=== PATIENT | female | born 1990 | race Caucasian/White ===

== ENCOUNTER 2016-04-22 14:57 | Inpatient (IN) | payer OTHER ==
[2016-04-22] MEDS ORDERED: Sodium Chloride 0.9% 10 ML Syringe FLUSH PRN (16:57)
[2016-04-22] MEDS: Lactated Ringers 1,000 ML IV SCH ×2 (17:17→22:11)
[2016-04-22] MEDS ORDERED: fentaNYL 300 MCG in Ropivacaine 200 ML EPIDUR ONE (21:30)
[2016-04-22] MEDS ORDERED: fentaNYL 100 MCG/2 ML SDV EPIDUR ONE (21:30)
[2016-04-22] MEDS ORDERED: ePHEDrine 50 MG/ML SDV IVPUSH PRN (23:19)
[2016-04-22] MEDS ORDERED: Promethazine 25 MG/ML SDV IV PRN (23:19)
[2016-04-22] MEDS ORDERED: Naloxone 0.4 MG in Sodium Chloride 0.9% 100 ML IV PRN (23:19)
[2016-04-22] MEDS ORDERED: diphenhydrAMINE 50 MG/ML SDV IVPUSH PRN (23:19)
[2016-04-22] MEDS ORDERED: Naloxone 0.4 MG/ML SDV IVPUSH PRN (23:19)
[2016-04-22] MEDS ORDERED: hydrOXYzine HCl 50 MG/ML SDV IM PRN (23:22)
[2016-04-22] MEDS ORDERED: Ondansetron 4 MG/2 ML SDV IVPUSH PRN (23:26)
[2016-04-23] MEDS ORDERED: Sodium Chloride 0.9% 10 ML Syringe FLUSH PRN (03:07)
[2016-04-23] MEDS: Acetaminophen 325 MG Tab PO PRN ×2 (03:35→09:02)
[2016-04-23] MEDS: Lactated Ringers 1,000 ML IV SCH (04:53)
--- NOTE | 2016-04-24 10:00 | DEL ---
DATE OF DELIVERY: 04/23/2016 ADMISSION AND DELIVERY NOTE: REASON FOR ADMISSION: This 26-year-old, female, one, para zero, EDC of 04/20/2016, was admitted in active labor. Her contractions had started earlier today and gradually increased in intensity and frequency. had been uncomplicated. No evidence of proteinuria, glucosuria, hypertension. Screening glucose was normal and her screening blood sugar was unremarkable. Ultrasounds revealed a male fetus and agreed with dates. She had taken no medicines other than vitamins. She had use some Gyne-Lotrimin cream for yeast infection. Otherwise, she is on no medicines now. ALLERGIES: None that are known. SOCIAL HISTORY: She does not smoke, nor use alcohol. PAST MEDICAL HISTORY: Completely unremarkable. FAMILY HISTORY: Negative. PHYSICAL EXAMINATION: VITAL SIGNS: Exam at this time showed her to be afebrile. Blood pressure was 139/75, pulse is 115 during contraction, respirations are 18, O2 saturation is 97%. GENERAL: A well-developed, well- nourished female, who at this time is in otherwise no acute distress. HEENT: Unremarkable. Carotid pulses are strong and equal. CHEST: Clear. CARDIOVASCULAR: Unremarkable with a regular rhythm. ABDOMEN: Unremarkable except for a gravid uterus. heart tones were in the 130s in the left lower quadrant. Pelvic exam showed cervix to be 3 cm dilated, -1 station, vertex presentation, and approximately 50% effaced. EXTREMITIES: Without clubbing, no edema. No other abnormalities were identified. The patient was initially monitored and after it became obvious that her contractions were frequent and of good quality. She was admitted shortly thereafter. Spontaneous ruptured membranes occurred with clear to slightly brown fluid. IV was inserted and we continued to monitor her labor. When she reached approximately 5 to 7 cm, she decided she would like an epidural. This was placed and she was very comfortable thereafter. She then slowly progressed to 10 cm dilatation and began pushing. Over the next hour and a half, she pushed to bring the baby's head down on the perineum. The perineum was then prepped and draped and she continued to push. The midline of the perineal body was anesthetized with 1% Xylocaine and we allowed her to continue to push. Position of the baby was DHRUV. The patient continued to push and it became obvious that we were about to develop a midline perineal tear. A small midline episiotomy was accomplished without difficulty and with the next 2 pushes, she went on to deliver the 's head. A loose nuchal cord was reduced and the nasopharynx was suctioned free of amniotic fluid and blood. It appeared to be clear or clear mucus. The baby then rotated to right occiput transverse and the left anterior followed by the right posterior shoulder were then delivered, as was the remainder of the . Again, the nasopharynx was suctioned free of amniotic fluid and blood. The cord was doubly clamped and dad was allowed to cut the cord between clamps without difficulty. The baby was then placed on the mom's abdomen. scores were 9 and 9. weight was 7 pounds 3 ounces. It was a male infant. Attention was returned to the mother. Cord blood was obtained and the placenta delivered after approximately 5 to 7 minutes of uterine massage. It appeared to be intact with vessels present x3. 10 units of Pitocin were placed in the IV bag and it was run at 999 mL/h with uterine massage and the above-mentioned Pitocin, excellent hemostasis was observed. The perineum was inspected and the episiotomy had extended to a second-degree. It was a very superficial periurethral abrasion, but no other vaginal tears or other abnormalities were identified. Cervix appeared to be intact. After aggressive uterine massage and excellent hemostasis, the episiotomy was then reanesthetized with 1% Xylocaine and repaired in the usual fashion with a running 2-0 chromic. She tolerated this well. All instruments were removed. The vagina was inspected for foreign bodies and clots were removed. The uterus remained firm. Rectum remained patent and she tolerated the whole procedure very well. Estimated blood loss was approximately 250 mL. All instruments and sponges were accounted for. The patient remained in the delivery room in good and stable condition, awake, alert, and visiting with us without difficulty. /[id number] /JAMESL
--- NOTE | 2016-04-24 10:32 | PN ---
DATE SEEN: 04/24/2016 SUBJECTIVE: This 26-year-old female is one day following a spontaneous vaginal delivery of a 7 pounds 3 ounce male. She is doing well. She says her bleeding is decreasing considerably. She is passing no clots. Denies any significant abdominal pain. She has been voiding without difficulty. She says her uterine discomfort is improving. Perineal discomfort is improving. She has been using tub soaks with good results. She is eating and drinking well. She slept well last night. She use only Tylenol for discomfort. OBJECTIVE: GENERAL: She appears to be quite comfortable. At this time in no acute distress. VITAL SIGNS: Afebrile. Blood pressure 102/67, pulse is 74 and regular, respirations were 20 and unlabored, O2 saturation on room air ranges between 93% and 98%. HEENT: Unremarkable. Mucous membranes are minimally pale. Thyroid is not enlarged. Carotid pulses strong and equal. CHEST: Clear. CARDIOVASCULAR: Revealed a normal S1 and S2 without murmur, rub, or gallop. ABDOMEN: Soft. Involuting firm uterus is noted that is nontender. EXTREMITIES: Without clubbing. No edema. No calf pain, swelling, or tenderness. LABORATORY DATA: Post delivery hemoglobin is 11.8, white count is 10,000, platelets are 122,000. IMPRESSION: day #1 following spontaneous vaginal delivery of a 7 pounds 3 ounce male. PLAN: No changes will be made. We will continue the same. Encourage pushing oral fluids, and continue the Tylenol for discomfort. We will follow from there. /[id number] /[place]
[2016-04-24 16:16] VITALS: BP 111/79
--- NOTE | 2016-05-03 10:46 | PN ---
DATE SEEN: 04/24/2016 SUBJECTIVE: Trisha is seen today for followup this afternoon. She is day #1, almost #2, from her normal spontaneous vaginal delivery. We had surfed on the day on the baby and it has gone well. The baby is voiding well and mom would like to go home. She says has been improving and she has little or no vaginal bleeding. No fever. No other complaints or concerns. OBJECTIVE: GENERAL: Unremarkable. VITAL SIGNS: She remains afebrile. Blood pressure 111/79, pulse is 66 and regular. BACK: Without CVA or spinal tenderness. CHEST: Clear. CARDIOVASCULAR: Unremarkable. ABDOMINAL: Unremarkable. EXTREMITIES: Unremarkable. IMPRESSION: Status post normal spontaneous vaginal delivery, currently doing well. PLAN: Plan on discharge home. She will follow up with her regular physician 2 weeks of age and regular visit at 6 weeks . We discussed contraception at this time. Barrier method will be used if in fact she does consent to have intercourse. Tub soaks will be continued to promote appropriate healing of the perineal area and Tylenol or ibuprofen will be used for discomfort as she says at this time she does not need anything more. She will continue her vitamins once daily and if there are any problems or concerns, call; otherwise, normal followup in six weeks. /[id number] /CL[place]
== END 2016-04-24 19:00 | disposition home or self-care (01) | DRG 775 ==
LOC: FB.OBCHECK 14:57 → FB.OB 14:57 → FB.OBCHECK 16:39 → UNDOADMIN 16:40 → FB.OB 16:40
PROVIDERS: ADMIT Family Medicine; ATTEND Family Medicine
PROC: 10E0XZZ Delivery of Products of Conception, External Approach (ICD-10-PCS; principal; 2016-04-23)
PROC: 0W8NXZZ Division of Female Perineum, External Approach (ICD-10-PCS; 2016-04-23)
PROC: 00HU33Z Insertion of Infusion Device into Spinal Canal, Percutaneous Approach (ICD-10-PCS; 2016-04-23)
DX: O69.81X0 Labor and delivery complicated by cord around neck, without compression, not applicable or unspecified (principal); Z3A.39 39 weeks gestation of pregnancy; Z37.0 Single live birth
CPT/HCPCS: 36415; 85027; 99211; A4217; A9270-GY; J2795; J3010; J7050; J7120

== ENCOUNTER 2017-05-24 07:00 | Inpatient (IN) | payer OTHER ==
[2017-05-24] MEDS ORDERED: Misoprostol 25 MCG (1/4 of 100 MCG) Tab VAG ONE (07:20)
--- NOTE | 2017-05-24 08:17 | PCM.LDHP ---
L&D History of Present Illness - General Date of Service: 05/24/17 Admit Problem/Dx: Patient Status Order with Admit Dx/Problem 05/24/17 07:04 Admission Status [Patient Status] [ADT] Routine Admission Diagnosis/Problem Admission Diagnosis/Problem Source of Information: Patient History Limitations: Reports: No Limitations - History of Present Illness Introduction:: 27 yo at 41 weeks 3days here for induction of labor due to Post datism. No complaints. Unremarkable . 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: Musculoskeletal History: Reports: Other (See Below) Other Musculoskeletal History: bunion repair to toe Dermatologic History: Reports: Other (See Below) Other Dermatologic History: use of clotramizole for vaginal yeast - Past Surgical History Head Surgeries/Procedures: Reports: None Musculoskeletal Surgical History: Reports: Other (See Below) Social & Family History - Family History OBGYN: Reports: Endocrine/Metabolic: Reports: Diabetes, Type I, Hypothyroidism - Tobacco Use Smoking Status *Q: Never Smoker Second Hand Smoke Exposure: No - Caffeine Use Caffeine Use: Reports: None - Recreational Drug Use Recreational Drug Use: No H&P Review of Systems - Review of Systems: Review Of Systems: ROS reveals no pertinent complaints other than HPI. L&D Exam - Exam Exam: See Below - Vital Signs Vital Signs: Last Vital Signs Temp Pulse 88 05/24/17 07:50 Resp BP 88/60 L 05/24/17 07:19 Pulse Ox 86 L 05/24/17 07:18 Weight: 68.946 kg - Murry Score Murry Score Effacement: 51-70% Murry Score Dilation: 1-2 cm Murry Score 's Station: -1 ,0 - Exam General: Alert, Oriented HEENT: PERRLA, Conjunctiva Clear, EACs Clear, EOMI, Hearing Intact, Mucosa Moist & Noonday, Nares Patent, Normal Nasal Septum, Posterior Pharynx Clear, TMs Clear Neck: Supple, Trachea Midline Lungs: Clear to Auscultation, Normal Respiratory Effort Cardiovascular: Regular Rate, Regular Rhythm GI/Abdominal Exam: Normal Bowel Sounds, Soft, Non-Tender, No Organomegaly, No Distention, No Abnormal Bruit, No Mass, Pelvis Stable Rectal Exam: Normal Exam, Normal Rectal Tone Genitourinary: Normal external exam, Normal bimanual exam, Normal speculum exam Back Exam: Normal Inspection, Full Range of Motion Extremities: Normal Inspection, Normal Range of Motion, Non-Tender, No Pedal Edema, Normal Capillary Refill Skin: Warm, Dry, Intact Neurological: Cranial Nerves Intact, Reflexes Equal Bilateral Psychiatric: Alert, Normal Affect, Normal Mood - Problem List (1) Encounter for elective induction of labor SNOMED Code(s): 695071364 ICD Code: Z34.90 - ENCNTR FOR SUPRVSN OF NORMAL , UNSP, UNSP TRIMESTER Status: Acute Current Visit: Yes (2) SNOMED Code(s): 90406188 ICD Code: Z33.1 - STATE, INCIDENTAL Status: Acute Current Visit : No Qualifiers: Weeks of gestation: 41 weeks Qualified Code(s): Z3A.41 - 41 weeks gestation of Problem List Initiated/Reviewed/Updated: Yes Orders Last 24hrs: Active Orders 24 hr Category Date Time Status Admission Status [Patient Status] [ADT] Routine ADT 05/24/17 07:04 Active Assessment/Plan Comment:: Cytotec Induction initiated.
--- NOTE | 2017-05-24 17:10 | PCM.PNLD ---
Labor Progress Note - VS & Meds Vital Signs: Last Vital Signs Temp Pulse 82 05/24/17 16:23 Resp BP 116/60 05/24/17 15:15 Pulse Ox 98 05/24/17 10:51 Active Medications: Current Medications Discontinued Medications Misoprostol (Cytotec) 25 mcg VAG ONETIME ONE Stop: 05/24/17 07:21 Last Admin: 05/24/17 07:49 Dose: 25 mcg - Uterine Contractions Uterine Monitoring Mode: External [place] Contraction Frequency (min): 2-4 Contraction Duration (sec): 40 Contraction Intensity: Mild to Moderate Uterine Resting Tone: Soft - Monitoring Heart Rate (FHR) Variability: Moderate (6-25 bmp) Accelerations: Present, 15x15 Decelerations: None Strip Review: Category I - Vaginal Exam Dilation (cm): 4 Effacement (Percent): 90 Station: -1 Cervical Position: Midposition Sterile Vaginal Exam Performed By: Ortiz Schrader Vaginal Exam Comment: baby has come down - Labor Progress (Free Text) Labor Progress: Doing well,comfortable.Contractions every 2-3 min . I performed AROM,clear fluid. Baby reassuring afterwards
[2017-05-24] MEDS ORDERED: Lactated Ringers 1,000 ML IV ONE (17:30)
[2017-05-24] MEDS ORDERED: ePHEDrine 50 MG/ML SDV IV ONE ×2 (17:45→19:15)
[2017-05-24] MEDS ORDERED: Ropivacaine 200 ML EPIDUR ONE (17:45)
[2017-05-24] MEDS ORDERED: fentaNYL 100 MCG/2 ML SDV EPIDUR ONE ×2 (17:45→19:15)
[2017-05-24] MEDS ORDERED: Sodium Chloride 0.9% 10 ML Syringe FLUSH PRN (18:19)
[2017-05-24] MEDS ORDERED: Lactated Ringers 1,000 ML IV SCH (18:45)
[2017-05-24] MEDS ORDERED: diphenhydrAMINE 50 MG/ML SDV IVPUSH PRN (20:38)
[2017-05-24] MEDS ORDERED: Promethazine 25 MG/ML SDV IV PRN (20:38)
[2017-05-24] MEDS ORDERED: Naloxone 0.4 MG/ML SDV IVPUSH PRN (20:38)
[2017-05-24] MEDS ORDERED: Naloxone 0.4 MG in Sodium Chloride 0.9% 100 ML IV PRN (20:38)
[2017-05-24] MEDS ORDERED: hydrOXYzine HCl 50 MG/ML SDV IM PRN ×2 (20:38)
[2017-05-24] MEDS ORDERED: ePHEDrine 50 MG/ML SDV IVPUSH PRN (20:38)
[2017-05-24] MEDS ORDERED: Ropivacaine HCl/PF 200 MG in Premix Bag 1 BAG EPIDUR SCH (21:00)
[2017-05-24] MEDS: Ibuprofen 600 MG Tab PO PRN (23:41)
[2017-05-25] MEDS: Ibuprofen 600 MG Tab PO PRN ×2 (04:15→09:47)
--- NOTE | 2017-05-25 06:16 | DEL ---
DATE OF DELIVERY: 05/24/2017 PREOPERATIVE DIAGNOSIS: 41 weeks and 3 days intrauterine here for induction of labor. POSTOPERATIVE DIAGNOSIS: 41 weeks and 3 days intrauterine here for induction of labor with delivery of a viable male at 2149 hours, weighing 9 pounds 3 ounces. scores of 9 and 9. PROCEDURE: 1. Spontaneous vaginal delivery. 2. First-degree periurethral repair. ANESTHESIA: Epidural. ESTIMATED BLOOD LOSS: 300 mL. INDICATIONS: This is a 27-year-old female, G2, P1, who presented at 41 weeks and 3 days for induction of labor, which was performed by Cytotec and artificial rupture of membranes. At 2100 hours, the patient was found to be complete and pushing. She was placed in the dorsal lithotomy position, prepped and draped in the usual sterile fashion for a vaginal delivery. The patient was asked to push and the head delivered spontaneously in the OA position. The rest of the baby was delivered. No nuchal cord was found and the baby was laid in the maternal abdomen. Cord was cut and clamped. The mouth and nose gently wiped. The was noted to have spontaneous cry and movement of all 4 extremities. The cord was cut and clamped x2 and 2 arteries and 1 vein were noted and the infant was passed to the warmer and the nursing personnel in attendance. Cord blood was obtained. The placenta was delivered within 5 minutes intact by gentle traction. The uterus was explored and 10 units of Pitocin was given IM. Examination of the cervix and vaginal vault revealed only 4 cm sized superficial laceration in the right periurethral area. This was repaired by 4-0 Prolene to achieve hemostasis. The patient tolerated the procedures well. She recovered and she is in L and D with infant. All the sponge and needle counts were correct. Myself, Dr. Schrader, was present during the whole procedure. /[id number] SASHA/CL[place]
--- NOTE | 2017-05-25 10:46 | PCM.PNPP ---
- General Info Date of Service: 05/25/17 Subjective Update: Doing well.Occasional cramps. - Review of Systems General: Reports: No Symptoms HEENT: Reports: No Symptoms Pulmonary: Reports: No Symptoms Cardiovascular: Reports: No Symptoms Gastrointestinal: Reports: No Symptoms Genitourinary: Reports: No Symptoms Musculoskeletal: Reports: No Symptoms Skin: Reports: No Symptoms Neurological: Reports: No Symptoms Psychiatric: Reports: No Symptoms - General Info Date of Service: 05/25/17 - Patient Data Vital Signs - Most Recent: Last Vital Signs Temp 98.4 F 05/25/17 04:00 Pulse 75 05/25/17 04:00 Resp 16 05/25/17 04:00 BP 98/60 05/25/17 04:00 Pulse Ox 100 05/24/17 22:32 Weight - Most Recent: 68.946 kg I&O - Last 24 Hours: Intake & Output 05/24/17 05/25/17 05/25/17 22:59 06:59 14:59 Intake Total 984 Output Total 500 Balance 484 Lab Results - Last 24 Hours: Laboratory Results - last 24 hr 05/25/17 Range/Units 06:20 WBC 12.4 H (4.5-12.0) X10-3/uL RBC 3.60 (3.23-5.20) x10(6)uL Hgb 10.6 L (11.5-15.5) g/dL Hct 32.4 (30.0-51.3) % MCV 90.1 (80-96) fL MCH 29.6 (27.7-33.6) pg MCHC 32.8 (32.2-35.4) g/dL RDW 13.4 (11.5-15.5) % Plt Count 104 L (125-369) X10(3)uL Med Orders - Current: Current Medications Ibuprofen (Motrin) 600 mg PO Q4H PRN PRN Reason: Pain Last Admin: 05/25/17 09:47 Dose: 600 mg Sodium Chloride (Saline Flush) 10 ml FLUSH ASDIRECTED PRN PRN Reason: Keep Vein Open Last Admin: 05/25/17 00:50 Dose: 10 ml Discontinued Medications Diphenhydramine HCl (Benadryl) 25 mg IVPUSH ASDIRECTED PRN PRN Reason: PRURITUS Ephedrine Sulfate (Ephedrine Sulfate) 5 mg IVPUSH ASDIRECTED PRN PRN Reason: HYPOTENSION Hydroxyzine HCl (Vistaril) 50 mg IM Q6H PRN PRN Reason: PRURITIS Hydroxyzine HCl (Vistaril) 0 mg IM Q4H PRN PRN Reason: N/V Lactated Ringer's (Ringers, Lactated) 1,000 mls @ 999 mls/hr IV BOLUS ONE Stop: 05/24/17 18:30 Last Admin: 05/24/17 17:30 Dose: 999 mls/hr Lactated Ringer's (Ringers, Lactated) 1,000 mls @ 125 mls/hr IV ASDIRECTED TOMAS Last Admin: 05/24/17 18:58 Dose: 125 mls/hr Naloxone HCl 0.4 mg/ Sodium (Chloride) 101 mls @ 25 mls/hr IV ASDIRECTED PRN PRN Reason: PER ORDER OF ANESTHESIA Ropivacaine 200 mg/ Premix 100 mls @ 8 mls/hr EPIDUR ASDIRECTED [facility] Misoprostol (Cytotec) 25 mcg VAG ONETIME ONE Stop: 05/24/17 07:21 Last Admin: 05/24/17 07:49 Dose: 25 mcg Naloxone HCl (Narcan) 0.1 mg IVPUSH ASDIRECTED PRN PRN Reason: RESPIRATORY STATUS Promethazine HCl (Phenergan) 6.25 - 12.5 mg IV Q4H PRN PRN Reason: NAUSEA AND VOMITING - Interaction Disposition, : [place] in Room with Family Infant Interaction: Holding Infant Infant Feeding: Attempted ; Nursed Fair/Poor Support Person: - Recovery Exam Fundal Tone: Firm Fundal Level: At Umbilicus Fundal Placement: Midline Lochia Amount: Moderate Lochia Color: Rubra/Red Perineum Description: Intact, Minimal Bruising/Swelling Other Perinuem Description: periurethral laceration-suturing done Episiotomy/Laceration: Approximated Bladder Status: Voiding - Exam General: Alert, Oriented HEENT: Pupils Equal Neck: Supple Lungs: Clear to Auscultation, Normal Respiratory Effort Cardiovascular: Regular Rate, Regular Rhythm GI/Abdominal Exam: Normal Bowel Sounds, Soft, Non-Tender, No Organomegaly, No Distention, No Abnormal Bruit, No Mass, Pelvis Stable Extremities: Normal Inspection, Normal Range of Motion, Non-Tender, No Pedal Edema, Normal Capillary Refill Skin: Warm, Dry, Intact Wound/Incisions: Healing Well Neurological: No New Focal Deficit Psy/Mental Status: Alert, Normal Affect, Normal Mood - Problem List & Annotations (1) Encounter for elective induction of labor SNOMED Code(s): 424179205 Code(s): Z34.90 - ENCNTR FOR SUPRVSN OF NORMAL , UNSP, UNSP TRIMESTER Status: Acute Current Visit: Yes (2) SNOMED Code(s): 78967628 Code(s): Z33.1 - STATE, INCIDENTAL Status: Acute Current Visit: No Qualifiers: Weeks of gestation: 41 weeks Qualified Code(s): Z3A.41 - 41 weeks gestation of (3) Normal labor and delivery SNOMED Code(s): 56258824, 122963177 Code(s): O80 - ENCOUNTER FOR FULL-TERM UNCOMPLICATED DELIVERY Status: Acute Current Visit: No (4) care and examination SNOMED Code(s): 135301065, 421177681, 118493165 Code(s): Z39.2 - ENCOUNTER FOR ROUTINE FOLLOW-UP Status: Acute Current Visit: Yes - Problem List Review Problem List Initiated/Reviewed/Updated: Yes - My Orders Last 24 Hours: My Active Orders 05/24/17 17:00 Admission Status [Patient Status] [ADT] Routine 05/24/17 18:19 Sodium Chloride 0.9% [Saline Flush] 10 ml FLUSH ASDIRECTED PRN Peripheral IV Insertion Adult [OM.PC] Routine 05/24/17 20:25 Insert Urinary Catheter [OM.PC] Timed 05/24/17 22:11 Up ad Radha [RC] ASDIRECTED Vital Signs [RC] PFP Ibuprofen [Motrin] 600 mg PO Q4H PRN Resuscitation Status Routine 05/24/17 22:12 Ice Therapy [OM.PC] Per Unit Routine Perineal Care [OM.PC] Per Unit Routine Sitz Bath [OM.PC] Per Unit Routine - Plan Plan:: Routine care
[2017-05-26] MEDS: Ibuprofen 600 MG Tab PO PRN (01:13)
[2017-05-26 01:50] VITALS: BP 108/85
--- NOTE | 2017-05-26 08:43 | PCM.PNPP ---
- General Info Date of Service: 05/26/17 Functional Status: Reports: Pain Controlled, Tolerating Diet - Review of Systems General: Reports: No Symptoms HEENT: Reports: No Symptoms Pulmonary: Reports: No Symptoms Cardiovascular: Reports: No Symptoms Gastrointestinal: Reports: No Symptoms Genitourinary: Reports: No Symptoms - General Info Date of Service: 05/26/17 - Patient Data Vital Signs - Most Recent: Last Vital Signs Temp 97.8 F 05/26/17 01:10 Pulse 114 H 05/26/17 01:10 Resp 18 05/26/17 01:10 BP 108/85 05/26/17 01:10 Pulse Ox 95 05/26/17 01:10 Weight - Most Recent: 68.946 kg Med Orders - Current: Current Medications Ibuprofen (Motrin) 600 mg PO Q4H PRN PRN Reason: Pain Last Admin: 05/26/17 01:13 Dose: 600 mg Sodium Chloride (Saline Flush) 10 ml FLUSH ASDIRECTED PRN PRN Reason: Keep Vein Open Last Admin: 05/25/17 00:50 Dose: 10 ml Discontinued Medications Diphenhydramine HCl (Benadryl) 25 mg IVPUSH ASDIRECTED PRN PRN Reason: PRURITUS Ephedrine Sulfate (Ephedrine Sulfate) 5 mg IVPUSH ASDIRECTED PRN PRN Reason: HYPOTENSION Ephedrine Sulfate (Ephedrine Sulfate) 10 mg IV .STK-MED ONE Stop: 05/24/17 17:46 Ephedrine Sulfate (Ephedrine Sulfate) 10 mg IV .STK-MED ONE Stop: 05/24/17 19:16 Fentanyl (Sublimaze) 100 mcg EPIDUR .STK-MED ONE Stop: 05/24/17 17:46 Fentanyl (Sublimaze) 100 mcg EPIDUR .STK-MED ONE Stop: 05/24/17 19:16 Hydroxyzine HCl (Vistaril) 50 mg IM Q6H PRN PRN Reason: PRURITIS Hydroxyzine HCl (Vistaril) 0 mg IM Q4H PRN PRN Reason: N/V Lactated Ringer's (Ringers, Lactated) 1,000 mls @ 999 mls/hr IV BOLUS ONE Stop: 05/24/17 18:30 Last Admin: 05/24/17 17:30 Dose: 999 mls/hr Lactated Ringer's (Ringers, Lactated) 1,000 mls @ 125 mls/hr IV ASDIRECTED TOMAS Last Admin: 05/24/17 18:58 Dose: 125 mls/hr Naloxone HCl 0.4 mg/ Sodium (Chloride) 101 mls @ 25 mls/hr IV ASDIRECTED PRN PRN Reason: PER ORDER OF ANESTHESIA Ropivacaine 200 mg/ Premix 100 mls @ 8 mls/hr EPIDUR ASDIRECTED TOMAS Ropivacaine (Naropin 0.2%) 200 mls @ as directed EPIDUR .STK-MED ONE Stop: 05/24/17 17:46 Misoprostol (Cytotec) 25 mcg VAG ONETIME ONE Stop: 05/24/17 07:21 Last Admin: 05/24/17 07:49 Dose: 25 mcg Naloxone HCl (Narcan) 0.1 mg IVPUSH ASDIRECTED PRN PRN Reason: RESPIRATORY STATUS Promethazine HCl (Phenergan) 6.25 - 12.5 mg IV Q4H PRN PRN Reason: NAUSEA AND VOMITING - Interaction Infant Disposition, : in Room with Family Interaction: Holding Infant Infant Feeding: Attempted ; Nursed Fair/Poor Support Person: - Recovery Exam Fundal Tone: Firm Fundal Level: At Umbilicus Fundal Placement: Midline Lochia Amount: Small, Moderate Lochia Color: Rubra/Red Perineum Description: Intact, Minimal Bruising/Swelling Other Perinuem Description: periurethral laceration-suturing done Episiotomy/Laceration: Approximated Bladder Status: Nonpalpable Urinary Elimination: Voided - Exam General: Alert, Oriented HEENT: Pupils Equal Neck: Supple Lungs: Clear to Auscultation, Normal Respiratory Effort Cardiovascular: Regular Rate, Regular Rhythm GI/Abdominal Exam: Normal Bowel Sounds, Soft, Non-Tender, No Organomegaly, No Distention, No Abnormal Bruit, No Mass, Pelvis Stable Extremities: Normal Inspection, Normal Range of Motion, Non-Tender, No Pedal Edema, Normal Capillary Refill Skin: Warm, Dry, Intact Wound/Incisions: Healing Well Neurological: No New Focal Deficit Psy/Mental Status: Alert, Normal Affect, Normal Mood - Problem List & Annotations (1) Encounter for elective induction of labor SNOMED Code(s): 619809906 Code(s): Z34.90 - ENCNTR FOR SUPRVSN OF NORMAL , UNSP, UNSP TRIMESTER Status: Acute Current Visit: Yes (2) SNOMED Code(s): 70087595 Code(s): Z33.1 - STATE, INCIDENTAL Status: Acute Current Visit: No Qualifiers: Weeks of gestation: 41 weeks Qualified Code(s): Z3A.41 - 41 weeks gestation of (3) Normal labor and delivery SNOMED Code(s): 35332593, 903566132 Code(s): O80 - ENCOUNTER FOR FULL-TERM UNCOMPLICATED DELIVERY Status: Acute Current Visit: No (4) care and examination SNOMED Code(s): 895940275, 388479544, 811079793 Code(s): Z39.2 - ENCOUNTER FOR ROUTINE FOLLOW-UP Status: Acute Current Visit: Yes - Problem List Review Problem List Initiated/Reviewed/Updated: Yes - Plan Plan:: DC home
--- NOTE | 2017-05-26 08:49 | PCM.DCSUM1 ---
Discharge Summary - Hospital Course Free Text/Narrative:: Induced ,delivered vaginally - Discharge Data Discharge Date: 05/26/17 Discharge Disposition: Home, Self-Care 01 Condition: Good - Discharge Diagnosis/Problem(s) (1) Encounter for elective induction of labor SNOMED Code(s): 453096765 ICD Code: Z34.90 - ENCNTR FOR SUPRVSN OF NORMAL , UNSP, UNSP TRIMESTER Status: Acute Current Visit: Yes (2) SNOMED Code(s): 13294236 ICD Code: Z33.1 - STATE, INCIDENTAL Status: Acute Current Visit : No Qualifiers: Weeks of gestation: 41 weeks Qualified Code(s): Z3A.41 - 41 weeks gestation of (3) Normal labor and delivery SNOMED Code(s): 87780600, 405717181 ICD Code: O80 - ENCOUNTER FOR FULL-TERM UNCOMPLICATED DELIVERY Status: Acute Current Visit: No (4) care and examination SNOMED Code(s): 401209593, 346052825, 429940772 ICD Code: Z39.2 - ENCOUNTER FOR ROUTINE FOLLOW-UP Status: Acute Current Visit: Yes - Discharge Plan Home Medications: Home Meds Pv W-O Arpit/Fe,Carbonyl/Alexsandra/Fa [Obstetrix EC Caplet] 1 tab PO DAILY 04/22/16 [ History] Acetaminophen [Tylenol] 650 mg PO Q4H PRN #30 tablet 04/24/16 [Rx] Patient Handouts: , Vaginal Delivery, Depression and Baby Blues, Hand Washing, [id number], Home Care Instructions for Mom, Vaginal Delivery, Care After, Challenges and Solutions, Care After Vaginal Delivery Referrals: Ortiz Schrader MD [Primary Care Provider] - (6 weeks) - General Info Date of Service: 05/26/17 Admission Dx/Problem (Free Text: Patient Status Order with Admit Dx/Problem 05/24/17 07:04 Admission Status [Patient Status] [ADT] Routine Admission Diagnosis/Problem Admission Diagnosis/Problem Subjective Update: Doing well.Occasional cramps. - Patient Data Vitals - Most Recent: Last Vital Signs Temp 97.8 F 05/26/17 01:10 Pulse 114 H 05/26/17 01:10 Resp 18 05/26/17 01:10 BP 108/85 05/26/17 01:10 Pulse Ox 95 05/26/17 01:10 Weight - Most Recent: 68.946 kg Med Orders - Current: Current Medications Ibuprofen (Motrin) 600 mg PO Q4H PRN PRN Reason: Pain Last Admin: 05/26/17 01:13 Dose: 600 mg Sodium Chloride (Saline Flush) 10 ml FLUSH ASDIRECTED PRN PRN Reason: Keep Vein Open Last Admin: 05/25/17 00:50 Dose: 10 ml Discontinued Medications Diphenhydramine HCl (Benadryl) 25 mg IVPUSH ASDIRECTED PRN PRN Reason: PRURITUS Ephedrine Sulfate (Ephedrine Sulfate) 5 mg IVPUSH ASDIRECTED PRN PRN Reason: HYPOTENSION Ephedrine Sulfate (Ephedrine Sulfate) 10 mg IV .STK-MED ONE Stop: 05/24/17 17:46 Ephedrine Sulfate (Ephedrine Sulfate) 10 mg IV .STK-MED ONE Stop: 05/24/17 19:16 Fentanyl (Sublimaze) 100 mcg EPIDUR .STK-MED ONE Stop: 05/24/17 17:46 Fentanyl (Sublimaze) 100 mcg EPIDUR .STK-MED ONE Stop: 05/24/17 19:16 Hydroxyzine HCl (Vistaril) 50 mg IM Q6H PRN PRN Reason: PRURITIS Hydroxyzine HCl (Vistaril) 0 mg IM Q4H PRN PRN Reason: N/V Lactated Ringer's (Ringers, Lactated) 1,000 mls @ 999 mls/hr IV BOLUS ONE Stop: 05/24/17 18:30 Last Admin: 05/24/17 17:30 Dose: 999 mls/hr Lactated Ringer's (Ringers, Lactated) 1,000 mls @ 125 mls/hr IV ASDIRECTED TOMAS Last Admin: 05/24/17 18:58 Dose: 125 mls/hr Naloxone HCl 0.4 mg/ Sodium (Chloride) 101 mls @ 25 mls/hr IV ASDIRECTED PRN PRN Reason: PER ORDER OF ANESTHESIA Ropivacaine 200 mg/ Premix 100 mls @ 8 mls/hr EPIDUR ASDIRECTED TOMAS Ropivacaine (Naropin 0.2%) 200 mls @ as directed EPIDUR .STK-MED ONE Stop: 05/24/17 17:46 Misoprostol (Cytotec) 25 mcg VAG ONETIME ONE Stop: 05/24/17 07:21 Last Admin: 05/24/17 07:49 Dose: 25 mcg Naloxone HCl (Narcan) 0.1 mg IVPUSH ASDIRECTED PRN PRN Reason: RESPIRATORY STATUS Promethazine HCl (Phenergan) 6.25 - 12.5 mg IV Q4H PRN PRN Reason: NAUSEA AND VOMITING - Exam General: Reports: Alert, Oriented HEENT: Reports: Pupils Equal, Pupils Reactive, EOMI, Mucous Membr. Moist/Accident Neck: Reports: Supple Lungs: Reports: Clear to Auscultation, Normal Respiratory Effort Cardiovascular: Reports: Regular Rate, Regular Rhythm GI/Abdominal Exam: Normal Bowel Sounds, Soft, Non-Tender, No Organomegaly, No Distention, No Abnormal Bruit, No Mass, Pelvis Stable (Female) Exam: Normal External Exam, Normal Speculum Exam, Normal Bimanual Exam Rectal (Female) Exam: Normal Exam, Normal Rectal Tone Back Exam: Reports: Normal Inspection, Full Range of Motion Extremities: Normal Inspection, Normal Range of Motion, Non-Tender, No Pedal Edema, Normal Capillary Refill Skin: Reports: Warm, Dry, Intact Wound/Incisions: Reports: Healing Well Neurological: Reports: No New Focal Deficit Psy/Mental Status: Reports: Alert, Normal Affect, Normal Mood
== END 2017-05-26 12:45 | disposition home or self-care (01) | DRG 775 ==
LOC: FB.OB 07:00 → OBSVTOIN 17:00 → FB.OB 17:00
PROVIDERS: ADMIT Family Medicine; ATTEND Family Medicine
PROC: 10E0XZZ Delivery of Products of Conception, External Approach (ICD-10-PCS; principal; 2017-05-24)
PROC: 3E0P7VZ Introduction of Hormone into Female Reproductive, Via Natural or Artificial Opening (ICD-10-PCS; 2017-05-24)
PROC: 10907ZC Drainage of Amniotic Fluid, Therapeutic from Products of Conception, Via Natural or Artificial Opening (ICD-10-PCS; 2017-05-24)
PROC: 6A550ZT Pheresis of Cord Blood Stem Cells, Single (ICD-10-PCS; 2017-05-24)
PROC: 0HQ9XZZ Repair Perineum Skin, External Approach (ICD-10-PCS; 2017-05-24)
PROC: 00HU33Z Insertion of Infusion Device into Spinal Canal, Percutaneous Approach (ICD-10-PCS; 2017-05-24)
DX: O48.0 Post-term pregnancy (principal); Z3A.41 41 weeks gestation of pregnancy; O71.82 Other specified trauma to perineum and vulva; Z37.0 Single live birth
CPT/HCPCS: 36415; 51701; 59300; 59409; 85027; A9270-GY; J2795; J3010; J7050; J7120

== ENCOUNTER 2018-10-24 02:41 | Inpatient (IN) | payer OTHER ==
[2018-10-24] MEDS ORDERED: Lactated Ringers 1,000 ML IV ONE (03:00)
[2018-10-24] MEDS ORDERED: Morphine PF 10 MG/10 ML SDV ONE (03:24)
[2018-10-24] MEDS ORDERED: Bupivacaine 0.75%/D5W 2 ML Amp ISPINAL ONE (03:24)
[2018-10-24] MEDS ORDERED: fentaNYL 100 MCG/2 ML SDV IV ONE (03:24)
[2018-10-24] MEDS ORDERED: Lactated Ringers 1,000 ML IV SCH (04:00)
--- NOTE | 2018-10-24 04:12 | PCM.SN ---
- Free Text/Narrative Note: ANESTHESIA OB SERVICE Date: 10/24/2018 Time: 0324 to 034 Preprocedure Dx: Active Labor with Pain Postprocedure Rx: Intrathecal Narcotic Procedure: Intrathecal Narcotic Placement I was called for the placement of an Intrathecal Narcotic per the surgeons request. Upon arrival, the patient was in extreme pain with her contractions, occasionally crying. She has had Epidurals for her labor previously without complications. She is a [I believe]. Risks and benefits discussed with her and her . She thought she was getting another Labor Epidural. I explained in some detail the differences and that it was felt that she would deliver soon. All questions were answered completely including possible PDPH and narcotic failure. I had to repeat that she would not be numb like an epidural. A consent was signed. Monitors: NIBP and SpO2 placed. She had about 500ml's of fluid IV. Monitor: FHT above 140 She was placed in a sitting position. Using sterile technique, I prepped her lumbar area with Betadine X 3 swabs and allowed to dry. I placed a sterile drape on her back and infiltrated the L2-3 interspace with 4 ml's of 1% Lidocaine plain. I then inserted a 25Ga. 3.5 In. Pencan needle using an introducer X 1 attempt with positive MARYA and clear CSF return. I injected 2.5 mg's of .75% Spinal Marcaine, 20 mcg's of Fentanyl and .2 mg's of Astromorph easily. She tolerated this well without paraesthesia's or complaints. She is expecting everything to be numb and again I reminded her and her spouse what we had discussed. Thank you for using this service. Kev Dickinson CRNA [place]
[2018-10-24] MEDS ORDERED: diphenhydrAMINE 50 MG/ML SDV IVPUSH PRN (04:32)
[2018-10-24] MEDS ORDERED: Naltrexone 50 MG Tab PO PRN (04:32)
[2018-10-24] MEDS ORDERED: Naloxone 0.4 MG/ML SDV IVPUSH PRN (04:32)
[2018-10-24] MEDS ORDERED: Ondansetron 4 MG/2 ML SDV IVPUSH PRN (04:32)
[2018-10-24] MEDS ORDERED: Promethazine 6.25 MG in Sodium Chloride 0.9% 50 ML IV PRN (04:32)
[2018-10-24] MEDS ORDERED: ePHEDrine 50 MG/ML SDV IVPUSH PRN (04:32)
[2018-10-24] MEDS ORDERED: Famotidine/Normal Saline 20 MG in Premix Bag 1 BAG IV PRN (04:32)
[2018-10-24] MEDS ORDERED: Nalbuphine 10 MG/1 ML Vial IVPUSH PRN (04:32)
[2018-10-24] MEDS ORDERED: Lactated Ringers 500 ML IV SCH ×2 (04:45)
[2018-10-24] MEDS ORDERED: Oxytocin 10 Units/1 ML SDV IM ONE (07:41)
--- NOTE | 2018-10-24 08:35 | PCM.DEL ---
L & D Note - General Info Date of Service: 10/24/18 - Delivery Note Labor: Spontaneous Delivery Outcome: Livebirth Delivery Method: Spontaneous Vaginal Delivery-Single Presentation: Left Occiput Anterior (MARQUISE) Nuchal Cord: None Prep: Povidone-Iodine (Betadine Anesthesia Type: Intrathecal Amniotic Fluid Description: Clear Episiotomy Type: None Laceration: None Placenta: Intact Cord: 3 Vessels Resuscitation Needed: Yes Score 1 min: 8 Score 5 min: 9 Second Stage Interventions: Reports: Second Nurse Assessed Progress of Descent, Second Nurse Reviewed Contraction Pattern, Second Nurse Reviewed Heart Tones, Encouragement Given, Pushing Effectively, Pushing, Feet in Foot Rests, Pushing, McRobert's Position Delivery Comments (Free Text/Narrative):: Spontaneous delivery.Cord delayed clamping. Vigorous baby. - General Info Date of Service: 10/24/18 Functional Status: Reports: Pain Controlled, Tolerating Diet - Review of Systems General: Reports: No Symptoms HEENT: Reports: No Symptoms Pulmonary: Reports: No Symptoms Cardiovascular: Reports: No Symptoms Gastrointestinal: Reports: No Symptoms Genitourinary: Reports: No Symptoms Musculoskeletal: Reports: No Symptoms Skin: Reports: No Symptoms Neurological: Reports: No Symptoms Psychiatric: Reports: No Symptoms - Patient Data Vitals - Most Recent: Last Vital Signs Temp Pulse 82 10/24/18 05:31 Resp BP 117/85 10/24/18 05:31 Pulse Ox 97 10/24/18 03:56 Weight - Most Recent: 64.41 kg Med Orders - Current: Current Medications Diphenhydramine HCl (Benadryl) 25 mg IVPUSH ASDIRECTED PRN PRN Reason: EXTRAPYRAMIDAL SIDE EFFECTS Ephedrine Sulfate (Ephedrine Sulfate) 0 mg IVPUSH ASDIRECTED PRN PRN Reason: Hypotension Famotidine 20 mg/ Premix 50 mls @ 100 mls/hr IV ONETIME PRN PRN Reason: PRURITIS Lactated Ringer's (Ringers, Lactated) 500 mls @ 999 mls/hr IV .SEECOMMENT TOMAS Lactated Ringer's (Ringers, Lactated) 500 mls @ 999 mls/hr IV BOLUS TOMAS Promethazine HCl 6.25 mg/ (Sodium Chloride) 50.25 mls @ 200 mls/hr IV Q4H PRN PRN Reason: Nausea/Vomiting Ibuprofen (Motrin) 600 mg PO Q4H PRN PRN Reason: Pain Nalbuphine HCl (Nubain) 10 mg IVPUSH Q1H PRN PRN Reason: PRURITUS Naloxone HCl (Narcan) 0.1 mg IVPUSH ASDIRECTED PRN PRN Reason: Respiratory Depression Naltrexone HCl (Naltrexone) 25 mg PO ASDIRECTED PRN PRN Reason: REVERSAL Ondansetron HCl (Zofran) 4 mg IVPUSH Q4H PRN PRN Reason: Nausea/Vomiting Discontinued Medications Oxytocin (Pitocin) 10 unit IM ONETIME ONE Stop: 10/24/18 07:42 - Exam General: Alert, Oriented HEENT: Pupils Equal, Pupils Reactive, EOMI, Mucous Membr. Moist/Bradley Neck: Supple Lungs: Clear to Auscultation, Normal Respiratory Effort Cardiovascular: Regular Rate, Regular Rhythm GI/Abdominal Exam: Normal Bowel Sounds, Soft, Non-Tender, No Organomegaly, No Distention, No Abnormal Bruit, No Mass, Pelvis Stable (Female) Exam: Normal External Exam, Normal Speculum Exam, Normal Bimanual Exam Back Exam: Normal Inspection, Full Range of Motion Extremities: Normal Inspection, Normal Range of Motion, Non-Tender, No Pedal Edema, Normal Capillary Refill Skin: Warm, Dry, Intact Wound/Incisions: Healing Well Neurological: No New Focal Deficit Psy/Mental Status: Alert, Normal Affect, Normal Mood - Problem List & Annotations (1) SNOMED Code(s): 76365347 Code(s): Z33.1 - STATE, INCIDENTAL Status: Acute Current Visit: No Qualifiers: (2) Normal labor and delivery SNOMED Code(s): 01843266, 16613696 Code(s): O80 - ENCOUNTER FOR FULL-TERM UNCOMPLICATED DELIVERY Status: Acute Current Visit: No - Problem List Review Problem List Initiated/Reviewed/Updated: Yes - My Orders Last 24 Hours: My Active Orders 10/24/18 02:47 Resuscitation Status Routine 10/24/18 02:55 Patient Status [ADT] Routine 10/24/18 04:45 Ibuprofen [Motrin] 600 mg PO Q4H PRN Assess Lochia [WOMSER] Per Unit Routine Assess Uterine Involution [WOMSER] Per Unit Routine 10/24/18 04:46 Vital Signs [RC] PFP 10/24/18 05:11 CBC WITH AUTO DIFF [HEME] AM 10/24/18 Breakfast Regular Diet [DIET] - Plan Plan:: Routine post care
[2018-10-24] MEDS: Ibuprofen 600 MG Tab PO PRN (10:31)
--- NOTE | 2018-10-25 08:58 | PCM.PNPP ---
- General Info Date of Service: 10/25/18 Functional Status: Reports: Pain Controlled - Review of Systems General: Reports: No Symptoms HEENT: Reports: No Symptoms Pulmonary: Reports: No Symptoms Cardiovascular: Reports: No Symptoms Gastrointestinal: Reports: No Symptoms Genitourinary: Reports: No Symptoms Musculoskeletal: Reports: No Symptoms Skin: Reports: No Symptoms Neurological: Reports: No Symptoms Psychiatric: Reports: No Symptoms - General Info Date of Service: 10/25/18 - Patient Data Vital Signs - Most Recent: Last Vital Signs Temp 97.5 F 10/25/18 00:00 Pulse 72 10/25/18 00:00 Resp 18 10/25/18 00:00 BP 120/78 10/25/18 00:00 Pulse Ox 97 10/24/18 03:56 Weight - Most Recent: 64.41 kg Lab Results - Last 24 Hours: Laboratory Results - last 24 hr 10/25/18 Range/Units 06:25 WBC 6.0 (4.5-12.0) X10-3/uL RBC 3.61 (3.23-5.20) x10(6)uL Hgb 11.1 L (11.5-15.5) g/dL Hct 32.9 (30.0-51.3) % MCV 91.0 (80-96) fL MCH 30.8 (27.7-33.6) pg MCHC 33.8 (32.2-35.4) g/dL RDW 14.2 (11.5-15.5) % Plt Count 91 L (125-369) X10(3)uL MPV 9.4 (7.4-10.4) fL Neut % (Auto) 56.6 (46-82) % Lymph % (Auto) 33.3 (13-37) % Emmet % (Auto) 8.2 (4-12) % Eos % (Auto) 1 (1.0-5.0) % Baso % (Auto) 1 (0-2) % Neut # (Auto) 3.4 (1.6-8.3) # Lymph # (Auto) 2.0 (0.6-5.0) # Emmet # (Auto) 0.5 (0.0-1.3) # Eos # (Auto) 0.1 (0.0-0.8) # Baso # (Auto) 0.0 (0.0-0.2) # Med Orders - Current: Current Medications Diphenhydramine HCl (Benadryl) 25 mg IVPUSH ASDIRECTED PRN PRN Reason: EXTRAPYRAMIDAL SIDE EFFECTS Ephedrine Sulfate (Ephedrine Sulfate) 0 mg IVPUSH ASDIRECTED PRN PRN Reason: Hypotension Famotidine 20 mg/ Premix 50 mls @ 100 mls/hr IV ONETIME PRN PRN Reason: PRURITIS Lactated Ringer's (Ringers, Lactated) 500 mls @ 999 mls/hr IV .SEECOMMENT TOMAS Lactated Ringer's (Ringers, Lactated) 500 mls @ 999 mls/hr IV BOLUS TOMAS Promethazine HCl 6.25 mg/ (Sodium Chloride) 50.25 mls @ 200 mls/hr IV Q4H PRN PRN Reason: Nausea/Vomiting Lactated Ringer's (Ringers, Lactated) 1,000 mls @ 150 mls/hr IV ASDIRECTED TOMAS Last Admin: 10/24/18 04:00 Dose: 150 mls/hr Ibuprofen (Motrin) 600 mg PO Q4H PRN PRN Reason: Pain Last Admin: 10/24/18 10:31 Dose: 600 mg Nalbuphine HCl (Nubain) 10 mg IVPUSH Q1H PRN PRN Reason: PRURITUS Naloxone HCl (Narcan) 0.1 mg IVPUSH ASDIRECTED PRN PRN Reason: Respiratory Depression Naltrexone HCl (Naltrexone) 25 mg PO ASDIRECTED PRN PRN Reason: REVERSAL Last Admin: 10/24/18 05:29 Dose: 25 mg Ondansetron HCl (Zofran) 4 mg IVPUSH Q4H PRN PRN Reason: Nausea/Vomiting Discontinued Medications Lactated Ringer's (Ringers, Lactated) 1,000 mls @ 999 mls/hr IV BOLUS ONE Stop: 10/24/18 04:00 Last Admin: 10/24/18 03:00 Dose: 999 mls/hr Oxytocin (Pitocin) 10 unit IM ONETIME ONE Stop: 10/24/18 07:42 Last Admin: 10/24/18 04:50 Dose: 10 unit - Infant Interaction Disposition, : in Room with Family Support Person: - Recovery Exam Fundal Tone: Firm Fundal Level: At Umbilicus Fundal Placement: Midline Lochia Amount: Moderate Lochia Color: Rubra/Red Perineum Description: Intact, Minimal Bruising/Swelling Episiotomy/Laceration: None Bladder Status: Voiding Urinary Elimination: Voided - Exam General: Alert, Oriented HEENT: Pupils Equal Neck: Supple Lungs: Clear to Auscultation, Normal Respiratory Effort Cardiovascular: Regular Rate, Regular Rhythm GI/Abdominal Exam: Normal Bowel Sounds, Soft, Non-Tender, No Organomegaly, No Distention, No Abnormal Bruit, No Mass, Pelvis Stable Extremities: Normal Inspection, Normal Range of Motion, Non-Tender, No Pedal Edema, Normal Capillary Refill Skin: Warm, Dry, Intact Wound/Incisions: Healing Well Neurological: No New Focal Deficit Psy/Mental Status: Alert, Normal Affect, Normal Mood - Problem List & Annotations (1) SNOMED Code(s): 96234124 Code(s): Z33.1 - STATE, INCIDENTAL Status: Acute Current Visit: No Qualifiers: (2) Normal labor and delivery SNOMED Code(s): 20769407, 68078159 Code(s): O80 - ENCOUNTER FOR FULL-TERM UNCOMPLICATED DELIVERY Status: Acute Current Visit: No (3) care and examination SNOMED Code(s): 578257362, 642266769 Code(s): Z39.2 - ENCOUNTER FOR ROUTINE FOLLOW-UP Status: Acute Current Visit: No - Problem List Review Problem List Initiated/Reviewed/Updated: Yes - Plan Plan:: Routine post care,may be discharged home
[2018-10-25 09:00] VITALS: BP 115/85
[2018-10-25] MEDS: Ibuprofen 600 MG Tab PO PRN (09:40)
== END 2018-10-25 12:10 | disposition home or self-care (01) | DRG 807 ==
LOC: FB.OBCHECK 02:41 → FB.OB 02:43 → FB.OBCHECK 02:52 → FB.OB 02:53 → OBSVTOIN 04:06
PROVIDERS: ADMIT Family Medicine; ATTEND Family Medicine
PROC: 10E0XZZ Delivery of Products of Conception, External Approach (ICD-10-PCS; principal; 2018-10-24)
PROC: 3E0R3BZ Introduction of Anesthetic Agent into Spinal Canal, Percutaneous Approach (ICD-10-PCS; 2018-10-24)
DX: O80 Encounter for full-term uncomplicated delivery (principal); Z37.0 Single live birth; Z3A.00 Weeks of gestation of pregnancy not specified
CPT/HCPCS: 36415; 59409; 85025; 99211; A9270-GY; J2001; J2270; J2590; J3010; J7120